=== PATIENT | female | born 1940 | race Caucasian/White ===

== ENCOUNTER 2017-12-21 06:34 | Day surgery (SDC) | payer OTHER, BC ==
[~2017-12-21] VITALS: Ht 157.5 cm; Wt 56.2 kg
[~2017-12-21 06:34] MED LIST: ASPIR 8181 M1 PO; ATIVAN0.5 MG PO; CALCIUM 600 +1 EAC9 PO; CYANOCOBALAM1000 MCG PO; FISH OIL 1,0001 EAC7 PO; FLAXSEED340 GM PO; LIPITOR10 MG PO; MAGNESIUM250 MG PO; VITAMIN B COMP1 EACH PO; VITAMIN D31000 UNI2 PO; VITAMIN E200 UNI2 PO
[2017-12-21 09:24] VITALS: BP 142/77
[2017-12-21 16:30] VITALS: BP 183/84
[2017-12-21 20:07] VITALS: BP 129/69
[2017-12-21 23:54] VITALS: BP 117/61
[2017-12-22 03:48] VITALS: BP 115/60
[2017-12-22 06:21] LABS: HEMATOCRIT 40.6 % (36.0-46.0); HEMOGLOBIN 13.9 G/DL (11.9-15.5); MCH 33.3 PG (29.0-34.0); MCHC 34.2 G/DL (30.0-36.0); MCV 97.4 FL (83-99); PLATELET COUNT 178 K/uL (156-360); RBC DIS.WIDTH-CV 11.8 % (11.8-14.6); RBC DIS.WIDTH-SD 42.2 % (39-53); RED BLOOD COUNT 4.17 M/uL (3.80-5.20); WHITE BLOOD COUNT 8.2 K/uL (4.1-10.2)
[2017-12-22 07:33] VITALS: BP 139/63
[2017-12-22] MEDS ORDERED: ENDOCET 5-3251 EACH PO (08:20)
== END 2017-12-22 10:16 | disposition home or self-care (01) ==
LOC: SDC 06:34 → NUC 08:00 → SDC 08:00 → 2EAST 13:49 → 2SOUTH 13:49 → ENRESERV 14:07 → 2EAST 15:22
PROVIDERS: Surgery
PROC: 07B50ZX Excision of Right Axillary Lymphatic, Open Approach, Diagnostic (ICD-10-PCS; principal; 2017-12-21)
PROC: 0HTT0ZZ Resection of Right Breast, Open Approach (ICD-10-PCS; principal; 2017-12-21)
DX: C50.511 Malignant neoplasm of lower-outer quadrant of right female breast (principal); Z17.0 Estrogen receptor positive status [ER+]; Z80.0 Family history of malignant neoplasm of digestive organs; Z80.8 Family history of malignant neoplasm of other organs or systems; Z87.891 Personal history of nicotine dependence
CPT/HCPCS: 78195; 78999; 85027; A9541; G0378; J0131; J0690; J1170; J2250; J3010; J3480; J7120; Q0175; S0020